=== PATIENT | male | born 1980 | race Caucasian/White ===

== ENCOUNTER 2021-01-19 10:35 | Inpatient (IN) | payer SELFPAY ==
[2021-01-19 11:33] LABS: #Lymphocytes 1.5 thou/uL (1.20-3.40); #Monocytes 0.3 thou/uL (0.11-0.59); #Neutrophils 5.7 thou/uL (1.40-6.50); %Basophils 0.4 % (0.0-1.0); %Eosinophils 0.1 % (0.0-10.0); %Lymphocytes 19.4 % (21.0-51.0); %Monocytes 3.8 % (0.0-10.0); %Neutrophils 76.3 % (42.0-75.0); Hemoglobin 14.6 g/dL (14.0-18.0); Mean Corpuscular HGB CONC 33.3 g/dL (32.0-36.0); Mean Corpuscular Hemoglobin 28.8 pg (27.0-31.0); Mean Corpuscular Volume 86.6 fL (78.0-98.0); Mean Platelet Volume 6.9 fL (7.4-10.4); Platelet Count 183 thou/uL (130-400); RBC Distribution Width 12.9 % (11.5-14.5); Red Blood Cell (RBC) Count 5.08 mill/uL (4.70-6.10); White Blood Cell (WBC) Count 7.5 thou/uL (4.8-10.8)
[2021-01-19] MEDS ORDERED: Acetaminophen 325 MG TAB ONE (11:45)
[2021-01-19] MEDS ORDERED: Azithromycin 500 MG VIAL ONE (11:51)
[2021-01-19 11:54] LABS: ALT (SGPT) 34 U/L (8-55); AST (SGOT) 40 U/L (5-34); Albumin 3.6 g/dL (3.5-5.0); Alkaline Phosphatase 81 U/L (40-110); Anion Gap 16 mmol/L (10-20); BUN (Urea Nitrogen) 13 mg/dL (8.9-20.6); Bilirubin, Total 0.7 mg/dL (0.2-1.2); Calc. Creatinine Clearance 0 mL/min (70-130); Calcium 8.5 mg/dL (7.8-10.44); Carbon Dioxide 20 mmol/L (22-29); Chloride 99 mmol/L (98-107); Globulin 2.8 g/dL (2.4-3.5); Glucose 232 mg/dL (70-105); Lipase 56 U/L (8-78); Magnesium 1.7 mg/dL (1.6-2.6); Potassium 4.1 mmol/L (3.5-5.1); Protein, Total 6.4 g/dL (6.0-8.3); Sodium 131 mmol/L (136-145)
[2021-01-19] MEDS ORDERED: cefTRIAXone\\ROCEPHIN 2 GM VIAL ONE (12:05)
[2021-01-19] MEDS ORDERED: Ketorolac Tromethamine 30 MG/ML VIAL ONE (12:54)
[2021-01-19] MEDS ORDERED: Iopamidol-370 76% 500 ML 1 ML ONE (12:55)
[2021-01-19 12:59] LABS: Bilirubin Negative (Negative); Blood, Urine Negative (Negative); Clarity Clear (Clear); Glucose, Urine (Dipstick) Greater than 1000 mg/dL (Negative); Ketone, Urine 60 mg/dL (Negative); Leukocyte Negative Leu/uL (Negative); Nitrite Negative (Negative); Protein, Urine (Dipstick) 10 mg/dL (Neg-Trace); Specific Gravity, Urine 1.019 (1.002-1.036); Urobilinogen Normal mg/dL (Less than 2); pH, Urine 5.5 (5.0-9.0)
[2021-01-19] MEDS ORDERED: Dexamethasone 10 MG/ML VIAL ONE (14:22)
[2021-01-19] MEDS ORDERED: Ondansetron ODT 4 MG TAB PO PRN (15:54)
[2021-01-19] MEDS ORDERED: Dextrose 5% in Water 1,000 ML IV PRN (15:54)
[2021-01-19] MEDS ORDERED: Dextrose 50% Abboject 50 ML SYRINGE SLOW IVP PRN (15:54)
[2021-01-19] MEDS ORDERED: Ondansetron PF 4 MG/2 ML Vial IVP PRN (15:54)
[2021-01-19] MEDS ORDERED: Loperamide HCl 2 MG CAP PO PRN (15:54)
[2021-01-19] MEDS ORDERED: Sodium Chloride 0.9% 1,000 ML IV SCH (16:00)
[2021-01-19 16:19] VITALS: BMI 47.9
[2021-01-19 16:38] LABS: SARS-CoV-2 PCR by NAA DETECTED (NotDetected)
[2021-01-19] MEDS: Sodium Chloride 0.9% 1,000 ML IV SCH (18:51)
[2021-01-19] MEDS: HumaLOG 300 UNITS/3 ML VIAL SC PRN (19:50)
[2021-01-19] MEDS: Guaifenesin DM 100-10/5 ML UDCUP PO PRN (19:51)
[2021-01-20] MEDS: Guaifenesin DM 100-10/5 ML UDCUP PO PRN ×2 (02:45→20:30)
[2021-01-20] MEDS ORDERED: traMADol HCl 50 MG TAB PO SCH (04:00)
[2021-01-20 05:08] LABS: #Lymphocytes 1.5 thou/uL (1.20-3.40); #Monocytes 0.3 thou/uL (0.11-0.59); #Neutrophils 4.4 thou/uL (1.40-6.50); %Basophils 0.1 % (0.0-1.0); %Eosinophils 0.2 % (0.0-10.0); %Lymphocytes 24.1 % (21.0-51.0); %Monocytes 5.2 % (0.0-10.0); %Neutrophils 70.4 % (42.0-75.0); Hemoglobin 13.3 g/dL (14.0-18.0); Mean Corpuscular HGB CONC 33.3 g/dL (32.0-36.0); Mean Corpuscular Hemoglobin 28.8 pg (27.0-31.0); Mean Corpuscular Volume 86.4 fL (78.0-98.0); Mean Platelet Volume 7.2 fL (7.4-10.4); Platelet Count 212 thou/uL (130-400); RBC Distribution Width 12.8 % (11.5-14.5); Red Blood Cell (RBC) Count 4.61 mill/uL (4.70-6.10); White Blood Cell (WBC) Count 6.3 thou/uL (4.8-10.8)
[2021-01-20 05:30] LABS: Anion Gap 12 mmol/L (10-20); BUN (Urea Nitrogen) 11 mg/dL (8.9-20.6); CRP (Inflammatory) 11.71 mg/dL (= or < 0.5); Calc. Creatinine Clearance 212 mL/min (70-130); Calcium 8.3 mg/dL (7.8-10.44); Carbon Dioxide 21 mmol/L (22-29); Chloride 103 mmol/L (98-107); Glucose 222 mg/dL (70-105); Sodium 132 mmol/L (136-145)
[2021-01-20] MEDS: HumaLOG 300 UNITS/3 ML VIAL SC PRN ×4 (05:31→20:30)
[2021-01-20 05:35] LABS: Troponin I 0.016 ng/mL (< 0.028)
[2021-01-20] MEDS ORDERED: Dexamethasone 4 MG TAB PO SCH (08:00)
[2021-01-20] MEDS: Cholecalciferol (Vitamin D3) 400 UNITS TAB PO SCH (08:04)
[2021-01-20] MEDS: Zinc Sulfate 220 MG CAP PO SCH (08:06)
[2021-01-20] MEDS: Ascorbic Acid 500 mg Chewable Tablet PO SCH (08:06)
[2021-01-20] MEDS: Sodium Chloride 0.9% 1,000 ML IV SCH (13:11)
[2021-01-20] MEDS: Enoxaparin Sodium 40 MG/0.4 ML SYRINGE SC SCH (20:31)
[2021-01-21] MEDS: Guaifenesin DM 100-10/5 ML UDCUP PO PRN ×4 (05:07→20:34)
[2021-01-21] MEDS: Acetaminophen 325 MG TAB PO PRN ×4 (05:08→20:33)
[2021-01-21 06:54] LABS: #Lymphocytes 1.6 thou/uL (1.20-3.40); #Monocytes 0.4 thou/uL (0.11-0.59); #Neutrophils 7.8 thou/uL (1.40-6.50); %Basophils 0.1 % (0.0-1.0); %Eosinophils 0.1 % (0.0-10.0); %Lymphocytes 16.6 % (21.0-51.0); %Monocytes 3.6 % (0.0-10.0); %Neutrophils 79.7 % (42.0-75.0); Hemoglobin 13.3 g/dL (14.0-18.0); Mean Corpuscular Hemoglobin 29.5 pg (27.0-31.0); Mean Corpuscular Volume 86.7 fL (78.0-98.0); Platelet Count 234 thou/uL (130-400); RBC Distribution Width 12.7 % (11.5-14.5); Red Blood Cell (RBC) Count 4.51 mill/uL (4.70-6.10); White Blood Cell (WBC) Count 9.8 thou/uL (4.8-10.8)
[2021-01-21 07:09] LABS: Anion Gap 14 mmol/L (10-20); BUN (Urea Nitrogen) 11 mg/dL (8.9-20.6); Calc. Creatinine Clearance 217 mL/min (70-130); Calcium 8.3 mg/dL (7.8-10.44); Carbon Dioxide 21 mmol/L (22-29); Chloride 102 mmol/L (98-107); Glucose 179 mg/dL (70-105); Potassium 3.6 mmol/L (3.5-5.1); Sodium 133 mmol/L (136-145)
[2021-01-21] MEDS: Ascorbic Acid 500 mg Chewable Tablet PO SCH (08:26)
[2021-01-21] MEDS: Enoxaparin Sodium 40 MG/0.4 ML SYRINGE SC SCH ×2 (08:26→20:37)
[2021-01-21] MEDS: Zinc Sulfate 220 MG CAP PO SCH (08:26)
[2021-01-21] MEDS: Cholecalciferol (Vitamin D3) 400 UNITS TAB PO SCH (08:26)
[2021-01-21] MEDS ORDERED: REMDESIVIR (EUA) 200 MG in Sodium Chloride 0.9% 250 ML 210 ML IV SCH (08:45)
[2021-01-21] MEDS: HumaLOG 300 UNITS/3 ML VIAL SC PRN ×3 (11:33→20:34)
[2021-01-21] MEDS ORDERED: Albuterol 200 PUFF (6.7GM INHALER) INH PRN (22:14)
[2021-01-22] MEDS: Guaifenesin DM 100-10/5 ML UDCUP PO PRN ×2 (03:03→20:10)
[2021-01-22] MEDS: HumaLOG 300 UNITS/3 ML VIAL SC PRN ×4 (05:13→20:10)
[2021-01-22] MEDS: Dexamethasone 4 MG TAB PO SCH (08:43)
[2021-01-22] MEDS: Ascorbic Acid 500 mg Chewable Tablet PO SCH (08:44)
[2021-01-22] MEDS: Zinc Sulfate 220 MG CAP PO SCH (08:44)
[2021-01-22] MEDS: Enoxaparin Sodium 40 MG/0.4 ML SYRINGE SC SCH ×2 (08:44→20:10)
[2021-01-22] MEDS: Cholecalciferol (Vitamin D3) 400 UNITS TAB PO SCH (08:44)
[2021-01-22] MEDS: REMDESIVIR (EUA) 100 MG in Sodium Chloride 0.9% 250 ML 230 ML IV SCH (08:53)
[2021-01-23] MEDS: Guaifenesin DM 100-10/5 ML UDCUP PO PRN (03:24)
[2021-01-23] MEDS: HumaLOG 300 UNITS/3 ML VIAL SC PRN ×4 (05:52→20:24)
[2021-01-23] MEDS: Ascorbic Acid 500 mg Chewable Tablet PO SCH (08:06)
[2021-01-23] MEDS: Zinc Sulfate 220 MG CAP PO SCH (08:06)
[2021-01-23] MEDS: Cholecalciferol (Vitamin D3) 400 UNITS TAB PO SCH (08:06)
[2021-01-23] MEDS: Enoxaparin Sodium 40 MG/0.4 ML SYRINGE SC SCH ×2 (08:06→20:23)
[2021-01-23] MEDS: Dexamethasone 4 MG TAB PO SCH (08:06)
[2021-01-23] MEDS: REMDESIVIR (EUA) 100 MG in Sodium Chloride 0.9% 250 ML 230 ML IV SCH (08:11)
[2021-01-23 08:54] LABS: #Lymphocytes 1.4 thou/uL (1.20-3.40); #Monocytes 0.5 thou/uL (0.11-0.59); #Neutrophils 5.4 thou/uL (1.40-6.50); %Basophils 0.5 % (0.0-1.0); %Eosinophils 0.3 % (0.0-10.0); %Lymphocytes 19.4 % (21.0-51.0); %Monocytes 6.4 % (0.0-10.0); %Neutrophils 73.3 % (42.0-75.0); Hemoglobin 13.6 g/dL (14.0-18.0); Mean Corpuscular HGB CONC 32.9 g/dL (32.0-36.0); Mean Corpuscular Hemoglobin 28.7 pg (27.0-31.0); Mean Corpuscular Volume 87.4 fL (78.0-98.0); Mean Platelet Volume 6.7 fL (7.4-10.4); Platelet Count 306 thou/uL (130-400); RBC Distribution Width 12.9 % (11.5-14.5); Red Blood Cell (RBC) Count 4.72 mill/uL (4.70-6.10); White Blood Cell (WBC) Count 7.4 thou/uL (4.8-10.8)
[2021-01-23 09:17] LABS: Anion Gap 12 mmol/L (10-20); BUN (Urea Nitrogen) 10 mg/dL (8.9-20.6); CRP (Inflammatory) 16.05 mg/dL (= or < 0.5); Calc. Creatinine Clearance 231 mL/min (70-130); Calcium 8.6 mg/dL (7.8-10.44); Carbon Dioxide 26 mmol/L (22-29); Chloride 104 mmol/L (98-107); Glucose 239 mg/dL (70-105); Sodium 138 mmol/L (136-145)
[2021-01-23] MEDS ORDERED: Lantus 1000 UNITS/10 ML VIAL SC SCH (15:45)
[2021-01-24] MEDS: HumaLOG 300 UNITS/3 ML VIAL SC PRN ×4 (05:55→20:15)
[2021-01-24 06:16] LABS: #Lymphocytes 1.3 thou/uL (1.20-3.40); #Monocytes 0.8 thou/uL (0.11-0.59); #Neutrophils 4.7 thou/uL (1.40-6.50); %Basophils 0.2 % (0.0-1.0); %Eosinophils 0.3 % (0.0-10.0); %Lymphocytes 19.3 % (21.0-51.0); %Monocytes 12.2 % (0.0-10.0); Hemoglobin 13.5 g/dL (14.0-18.0); Mean Corpuscular HGB CONC 33.2 g/dL (32.0-36.0); Mean Corpuscular Hemoglobin 29.1 pg (27.0-31.0); Mean Corpuscular Volume 87.6 fL (78.0-98.0); Mean Platelet Volume 6.7 fL (7.4-10.4); Platelet Count 361 thou/uL (130-400); RBC Distribution Width 12.9 % (11.5-14.5); Red Blood Cell (RBC) Count 4.65 mill/uL (4.70-6.10); White Blood Cell (WBC) Count 6.9 thou/uL (4.8-10.8)
[2021-01-24 06:40] LABS: Anion Gap 14 mmol/L (10-20); BUN (Urea Nitrogen) 14 mg/dL (8.9-20.6); Calc. Creatinine Clearance 228 mL/min (70-130); Calcium 8.6 mg/dL (7.8-10.44); Carbon Dioxide 25 mmol/L (22-29); Chloride 103 mmol/L (98-107); Glucose 260 mg/dL (70-105); Potassium 4.3 mmol/L (3.5-5.1); Sodium 138 mmol/L (136-145)
[2021-01-24] MEDS: Dexamethasone 4 MG TAB PO SCH (07:37)
[2021-01-24] MEDS: Cholecalciferol (Vitamin D3) 400 UNITS TAB PO SCH (07:37)
[2021-01-24] MEDS: Enoxaparin Sodium 40 MG/0.4 ML SYRINGE SC SCH ×2 (07:37→20:15)
[2021-01-24] MEDS: Zinc Sulfate 220 MG CAP PO SCH (07:37)
[2021-01-24] MEDS: Ascorbic Acid 500 mg Chewable Tablet PO SCH (07:37)
[2021-01-24] MEDS: Lantus 1000 UNITS/10 ML VIAL SC SCH (07:38)
[2021-01-24] MEDS: REMDESIVIR (EUA) 100 MG in Sodium Chloride 0.9% 250 ML 230 ML IV SCH (08:19)
[2021-01-25] MEDS: Guaifenesin DM 100-10/5 ML UDCUP PO PRN (05:16)
[2021-01-25] MEDS: HumaLOG 300 UNITS/3 ML VIAL SC PRN ×4 (05:16→21:27)
[2021-01-25 06:19] LABS: #Eosinphils 0.1 thou/uL (0.0-0.7); #Lymphocytes 1.7 thou/uL (1.20-3.40); #Monocytes 0.7 thou/uL (0.11-0.59); #Neutrophils 4.7 thou/uL (1.40-6.50); %Basophils 0.3 % (0.0-1.0); %Lymphocytes 23.3 % (21.0-51.0); %Monocytes 10.3 % (0.0-10.0); %Neutrophils 65.1 % (42.0-75.0); Hemoglobin 13.8 g/dL (14.0-18.0); Mean Corpuscular HGB CONC 33.7 g/dL (32.0-36.0); Mean Corpuscular Hemoglobin 29.2 pg (27.0-31.0); Mean Corpuscular Volume 86.6 fL (78.0-98.0); Mean Platelet Volume 6.4 fL (7.4-10.4); Platelet Count 433 thou/uL (130-400); RBC Distribution Width 12.7 % (11.5-14.5); Red Blood Cell (RBC) Count 4.72 mill/uL (4.70-6.10); White Blood Cell (WBC) Count 7.1 thou/uL (4.8-10.8)
[2021-01-25 06:41] LABS: Anion Gap 14 mmol/L (10-20); BUN (Urea Nitrogen) 16 mg/dL (8.9-20.6); CRP (Inflammatory) 4.25 mg/dL (= or < 0.5); Calc. Creatinine Clearance 225 mL/min (70-130); Calcium 8.7 mg/dL (7.8-10.44); Carbon Dioxide 22 mmol/L (22-29); Chloride 103 mmol/L (98-107); Glucose 240 mg/dL (70-105); Sodium 135 mmol/L (136-145)
[2021-01-25] MEDS: Dexamethasone 4 MG TAB PO SCH (09:17)
[2021-01-25] MEDS: Acetaminophen 325 MG TAB PO PRN (09:17)
[2021-01-25] MEDS: Cholecalciferol (Vitamin D3) 400 UNITS TAB PO SCH (09:17)
[2021-01-25] MEDS: Ascorbic Acid 500 mg Chewable Tablet PO SCH (09:17)
[2021-01-25] MEDS: Lantus 1000 UNITS/10 ML VIAL SC SCH (09:18)
[2021-01-25] MEDS: Zinc Sulfate 220 MG CAP PO SCH (09:18)
[2021-01-25] MEDS: Enoxaparin Sodium 40 MG/0.4 ML SYRINGE SC SCH ×2 (09:18→21:24)
[2021-01-25] MEDS: REMDESIVIR (EUA) 100 MG in Sodium Chloride 0.9% 250 ML 230 ML IV SCH (09:18)
[2021-01-26] MEDS: HumaLOG 300 UNITS/3 ML VIAL SC PRN ×2 (05:51→11:39)
[2021-01-26 07:11] VITALS: BP 106/68; TEMP 97.7
[2021-01-26] MEDS: Cholecalciferol (Vitamin D3) 400 UNITS TAB PO SCH (08:49)
[2021-01-26] MEDS: Ascorbic Acid 500 mg Chewable Tablet PO SCH (08:50)
[2021-01-26] MEDS: Zinc Sulfate 220 MG CAP PO SCH (08:50)
[2021-01-26] MEDS: Dexamethasone 4 MG TAB PO SCH (08:50)
[2021-01-26] MEDS: Enoxaparin Sodium 40 MG/0.4 ML SYRINGE SC SCH (08:52)
[2021-01-26] MEDS: Lantus 1000 UNITS/10 ML VIAL SC SCH (08:52)
[2021-01-26] MEDS: Guaifenesin DM 100-10/5 ML UDCUP PO PRN (08:55)
== END 2021-01-26 16:13 | disposition home or self-care (01) | DRG 177 ==
LOC: SUATTDRO 10:35 → ERS 10:35 → T4-B 14:09 → OBSVTOIN 01-20 12:19
PROVIDERS: ADMIT Internal Medicine; ATTEND Internal Medicine
PROC: 8E0ZXY6 Isolation (ICD-10-PCS; 2021-01-20)
PROC: XW033E5 Introduction of Remdesivir Anti-infective into Peripheral Vein, Percutaneous Approach, New Technology Group 5 (ICD-10-PCS; principal; 2021-01-21)
DX: U07.1 COVID-19 (principal); J12.82 Pneumonia due to coronavirus disease 2019; J96.01 Acute respiratory failure with hypoxia; Z68.42 Body mass index [BMI] 45.0-49.9, adult; E87.1 Hypo-osmolality and hyponatremia; E11.69 Type 2 diabetes mellitus with other specified complication; Z83.3 Family history of diabetes mellitus; E66.01 Morbid (severe) obesity due to excess calories
CPT/HCPCS: 36415; 36416; 71045; 71275; 80048; 80053; 81003; 82728; 83605; 83690; 83735; 84484; 85025; 85379; 86140; 87040; 87086; 87635; 93005; 93010; 94760; 96365; 96375; G0378; J0456; J0696; J1100; J1650; J1815; J1885; J7050; J8540; Q9967; U0003; U0005